=== PATIENT | male | born 1940 | race Caucasian/White ===

== ENCOUNTER 2017-08-06 15:43 | Observation (INO) | payer MEDICARE ==
[~2017-08-06] VITALS: Ht 175.3 cm; Wt 104.3 kg
[~2017-08-06 15:43] MED LIST: ALBU8.5H8 IH; ATOR-2 PO; BUDE10.2 IH; FLUT16H NASAL; LISI10TA7 PO; PYRI50TA15 PO; TAMS0.4C32 PO; spiriva IH
[2017-08-06] MEDS ORDERED: METHYLPREDNISOLONE SOD SUCC 125MG/2ML VIAL ONE (16:13)
[2017-08-06] MEDS ORDERED: IPRATROPIUM/ALBUTEROL SULFATE 3 ML SOLUTION IH ONE (16:18)
[2017-08-06 16:26] LABS: BASOPHILS % (AUTO) 0.7 % (0.0-5.0); EOSINOPHILS % (AUTO) 0.6 % (0.0-8.0); HEMATOCRIT 47.7 % (42-54); MEAN CORPUSCULAR HEMOGLOBIN 30.9 pg (27.0-33.0); MEAN CORPUSCULAR HGB CONC 34.3 g/dL (32.0-36.0); MEAN CORPUSCULAR VOLUME 90.3 fL (79-99); MONOCYTES % (AUTO) 20.4 % (3.0-13.0); NEUTROPHILS % (AUTO) 58.3 % (40.0-77.0); PLATELET COUNT (AUTO) 166 K/uL (130-400); RED BLOOD CELL COUNT(AUTO) 5.28 MIL/uL (4.50-6.20); RED CELL DISTRIBUTION WIDTH 15.2 % (11.0-15.5)
[2017-08-06 16:35] LABS: CREATININE 1.3 mg/dL (0.5-1.5); POTASSIUM 4.1 mmol/L (3.5-5.1)
[2017-08-06 16:40] LABS: ALBUMIN 3.6 g/dL (3.5-5.0); BILIRUBIN,TOTAL 0.7 mg/dL (0.2-1.0)
[2017-08-06] MEDS ORDERED: OSELTAMIVIR PHOSPHATE 75 MG CAP ONE (18:03)
[2017-08-06] MEDS ORDERED: AZITHROMYCIN 500MG+NS 250ML 250 ML IV ONE (20:17)
[2017-08-07] MEDS ORDERED: METHYLPREDNISOLONE SOD SUCC 40MG/ML 1ML ONE (05:16)
[2017-08-07] MEDS ORDERED: OSELTAMIVIR PHOSPHATE 75 MG CAP ONE (05:17)
[2017-08-07 05:45] LABS: BASOPHILS % (AUTO) 0.4 % (0.0-5.0); HEMATOCRIT 45.8 % (42-54); LYMPHOCYTES % (AUTO) 17.3 % (21.0-51.0); MEAN CORPUSCULAR HEMOGLOBIN 30.7 pg (27.0-33.0); MEAN CORPUSCULAR HGB CONC 33.8 g/dL (32.0-36.0); MEAN CORPUSCULAR VOLUME 90.8 fL (79-99); MONOCYTES % (AUTO) 14.1 % (3.0-13.0); NEUTROPHILS % (AUTO) 68.2 % (40.0-77.0); NUCLEATED RED BLOOD CELLS 0.1 % (0.0-0.19); PLATELET COUNT (AUTO) 170 K/uL (130-400); RED BLOOD CELL COUNT(AUTO) 5.04 MIL/uL (4.50-6.20); RED CELL DISTRIBUTION WIDTH 15.5 % (11.0-15.5); WHITE BLOOD COUNT (AUTO) 3.7 K/uL (4.8-10.8)
[2017-08-07 05:53] LABS: CREATININE 1.1 mg/dL (0.5-1.5)
[2017-08-07] MEDS ORDERED: CLONIDINE HCL 0.1 MG TABLET PO PRN (07:30)
[2017-08-07] MEDS ORDERED: POTASSIUM CHLORIDE 10% ELIXIR 20 MEQ/15 ML UDCUP PO PRN (07:30)
[2017-08-07] MEDS ORDERED: LIDOCAINE HCL-MPF 1% 2ML VIAL IJ PRN (07:30)
[2017-08-07] MEDS ORDERED: POTASSIUM CHLORIDE 20 MEQ ERTAB PO PRN (07:30)
[2017-08-07] MEDS ORDERED: LACTULOSE 20 GM/30 ML UDCUP PO PRN (07:30)
[2017-08-07] MEDS ORDERED: NITROGLYCERIN 0.4 MG SL TAB SL PRN (07:30)
[2017-08-07] MEDS ORDERED: GUAIFENESIN-DM 200/20 MG 10 ML PO PRN (07:30)
[2017-08-07] MEDS ORDERED: ONDANSETRON HCL 4 MG/2 ML VIAL IVP PRN (07:30)
[2017-08-07] MEDS ORDERED: ACETAMINOPHEN 325 MG TAB PO PRN ×2 (07:30)
[2017-08-07] MEDS ORDERED: POTASSIUM CHLORIDE 20MEQ/100ML 100 ML IV PRN (07:30)
[2017-08-07] MEDS ORDERED: FAMOTIDINE 20MG TAB 20 MG TAB PO SCH (09:00)
[2017-08-07] MEDS ORDERED: OSELTAMIVIR PHOSPHATE 75 MG CAP PO SCH (09:00)
[2017-08-07] MEDS ORDERED: AZITHROMYCIN 500MG+NS 250ML 250 ML IV SCH (09:00)
[2017-08-07] MEDS: IPRATROPIUM/ALBUTEROL SULFATE 3 ML SOLUTION IH SCH ×2 (10:00→13:28)
[2017-08-07] MEDS ORDERED: IPRATROPIUM/ALBUTEROL SULFATE 3 ML SOLUTION IH ONE ×2 (10:21)
[2017-08-07] MEDS ORDERED: PRED20TA3 PO (12:17)
[2017-08-07] MEDS ORDERED: AZIT500T4 PO (12:17)
[2017-08-07] MEDS ORDERED: OSEL75 PO (12:17)
[2017-08-07 13:13] VITALS: BP 131/72
[2017-08-07] MEDS ORDERED: METHYLPREDNISOLONE SOD SUCC 125MG/2ML VIAL IVP SCH (14:00)
== END 2017-08-07 13:46 | disposition home or self-care (01) ==
LOC: EDH 15:43 → EDHIP 18:15
PROVIDERS: ADMIT Family Medicine; ATTEND Family Medicine
DX: J44.1 Chronic obstructive pulmonary disease with (acute) exacerbation (principal); J10.1 Influenza due to other identified influenza virus with other respiratory manifestations; I10 Essential (primary) hypertension; I25.10 Atherosclerotic heart disease of native coronary artery without angina pectoris; E66.9 Obesity, unspecified; R09.02 Hypoxemia; Z87.891 Personal history of nicotine dependence
CPT/HCPCS: 36415 ×2; 71045; 80048; 80053; 83605; 84484; 85025 ×2; 87040 ×2; 87804 ×2; 93005; 94640 ×3; 94664; 99285; G0378 ×20; J0456; J2920; J2930

== ENCOUNTER 2019-03-17 16:53 | Emergency (ER) | payer MEDICARE ==
[~2019-03-17 16:53] MED LIST changes: +AEC81 PO; +BENZ200C53 PO; +CLOP75TA14 PO; -LISI10TA7 PO; +PRED20B PO
[2019-03-17] MEDS ORDERED: ACETAMINOPHEN EXTRA STRENGTH 500 MG TABLET ONE (17:36)
[2019-04-04] MEDS ORDERED: ROSU40TA21 PO (15:28)
== END 2019-03-17 18:15 | disposition home or self-care (01) ==
LOC: EDH 16:53
DX: S16.1XXA Strain of muscle, fascia and tendon at neck level, initial encounter (principal); I10 Essential (primary) hypertension; J44.9 Chronic obstructive pulmonary disease, unspecified; Z87.891 Personal history of nicotine dependence; V49.49XA Driver injured in collision with other motor vehicles in traffic accident, initial encounter; Y93.89 Activity, other specified; Y92.410 Unspecified street and highway as the place of occurrence of the external cause; Y99.8 Other external cause status
CPT/HCPCS: 72125

== ENCOUNTER 2019-04-05 07:00 | Day surgery (SDC) | payer MEDICARE ==
[~2019-04-05 07:00] MED LIST changes: -AEC81 PO; -ATOR-2 PO; -PRED20B PO; -PYRI50TA15 PO; +ROSU40TA21 PO; +SODIUM CHLORIDE 0.9% 1000ML 1,000 ML IV ONE; -TAMS0.4C32 PO
[2019-04-05] MEDS ORDERED: IPRATROPIUM/ALBUTEROL SULFATE 3 ML SOLUTION IH ONE (09:31)
[2019-04-05] MEDS ORDERED: IPRATROPIUM/ALBUTEROL SULFATE 3 ML SOLUTION IH SCH (09:45)
[2019-04-05] MEDS ORDERED: LOSA25TA41 PO (09:47)
[2019-04-05] MEDS ORDERED: ALBU0.63 IH (09:47)
[2019-04-05] MEDS ORDERED: PROPOFOL 10 MG/ML 20ML VIAL IV ONE (10:30)
[2019-04-05] MEDS ORDERED: PHENYLEPHRINE HCL 10 MG/ML 1ML VIAL IV ONE (10:43)
[2019-04-05] MEDS ORDERED: SODIUM CHLORIDE 0.9% 10 ML VIAL ONE (10:43)
[2019-04-05 10:54] VITALS: BP 122/65
[2019-04-05 10:59] VITALS: BP 114/69
[2019-04-05 11:04] VITALS: BP 118/52
[2019-04-05 11:09] VITALS: BP 104/84
[2019-04-05 11:15] VITALS: BP 106/70
== END 2019-04-05 11:36 | disposition home or self-care (01) ==
LOC: ENDO 07:00 → DAH 07:00 → ENDO 11:36
PROVIDERS: ATTEND Internal Medicine
DX: K92.2 Gastrointestinal hemorrhage, unspecified (principal); D12.2 Benign neoplasm of ascending colon; D12.4 Benign neoplasm of descending colon; K64.1 Second degree hemorrhoids; E78.5 Hyperlipidemia, unspecified; I10 Essential (primary) hypertension; J44.9 Chronic obstructive pulmonary disease, unspecified; K21.9 Gastro-esophageal reflux disease without esophagitis; I25.10 Atherosclerotic heart disease of native coronary artery without angina pectoris; K44.9 Diaphragmatic hernia without obstruction or gangrene; Z79.82 Long term (current) use of aspirin; Z95.5 Presence of coronary angioplasty implant and graft; Z79.899 Other long term (current) drug therapy; Z90.49 Acquired absence of other specified parts of digestive tract; Z98.890 Other specified postprocedural states
CPT/HCPCS: 45385; 88305; 94640; A4215; A4221; A4222; A4223; A4606; A4615; A4663; J2370; J2704; J7030

== ENCOUNTER → 2021-10-16 | Outpatient (CLI) | payer MEDICARE ==
[~2021-10-16] MED LIST changes: +ALBU0.63 IH; +LOSA25TA41 PO; -SODIUM CHLORIDE 0.9% 1000ML 1,000 ML IV ONE
== END | disposition home or self-care (01) ==
LOC: OIH 10:57
PROVIDERS: ATTEND Internal Medicine Cardiovascular Disease
DX: I50.20 Unspecified systolic (congestive) heart failure (principal); I11.0 Hypertensive heart disease with heart failure
CPT/HCPCS: 93306

== ENCOUNTER → 2022-06-27 | Outpatient (CLI) | payer MEDICARE ==
[~2022-06-27] MED LIST changes: +CLOP-31 PO; -CLOP75TA14 PO; +IOHEXOL-350 50ML VIAL IV ONE
== END | disposition home or self-care (01) ==
LOC: RAH 10:12
PROVIDERS: ATTEND Internal Medicine Cardiovascular Disease
DX: J44.9 Chronic obstructive pulmonary disease, unspecified (principal); R04.2 Hemoptysis
CPT/HCPCS: 71270; Q9967

== ENCOUNTER 2022-12-24 06:52 | Inpatient (IN) | payer MEDICARE ==
[2022-12-22 10:51] VITALS: BP 113/75; PULSE 87; RESP 16
[2022-12-22 10:55] LABS: BASOPHILS % (AUTO) 0.4 % (0.0-5.0); EOSINOPHILS % (AUTO) 0.8 % (0.0-8.0); HEMATOCRIT 46.7 % (42-54); LYMPHOCYTES % (AUTO) 7.6 % (21.0-51.0); MEAN CORPUSCULAR HEMOGLOBIN 27.5 pg (27.0-33.0); MEAN CORPUSCULAR HGB CONC 30.8 g/dL (32.0-36.0); MEAN CORPUSCULAR VOLUME 89.1 fL (79-99); MONOCYTES % (AUTO) 10.7 % (3.0-13.0); NEUTROPHILS % (AUTO) 79.3 % (40.0-77.0); PLATELET COUNT (AUTO) 252 K/uL (130-400); RED BLOOD CELL COUNT(AUTO) 5.24 MIL/uL (4.50-6.20); RED CELL DISTRIBUTION WIDTH 17.4 % (11.0-15.5); WHITE BLOOD COUNT (AUTO) 16.8 K/uL (4.8-10.8)
[2022-12-22 11:04] LABS: INR 1.03 (0.85-1.15); PROTHROMBIN TIME 11.9 SEC (9.6-11.6)
[2022-12-22 11:05] LABS: PARTIAL THROMBOPLASTIN TIME 30.6 SEC (26.3-35.5)
[2022-12-22 11:06] LABS: ALBUMIN 3.2 g/dL (3.5-5.0); POTASSIUM 4.8 mmol/L (3.5-5.1); TOTAL PROTEIN, SERUM 7.2 g/dL (6.0-8.3)
[~2022-12-24] VITALS: Ht 175.3 cm; Wt 76.1 kg
[2022-12-24] VITALS (22 sets, daily range): BP systolic 102–135; BP diastolic 58–75; PULSE 79–97; RESP 11–20; O2SAT 98
[~2022-12-24 06:52] MED LIST changes: +AEC81 PO; -ALBU8.5H8 IH; +BRIM5DRO2 OU; -BUDE10.2 IH; -CLOP-31 PO; +DICL75TA5 PO; +EZET10TA48 PO; +FINA5TAB41 PO; +FLUT1BLS9 IH; -IOHEXOL-350 50ML VIAL IV ONE; +LEFL10TA19 PO; +MV-M1TAB20 PO; +TIOT18CA3 IH; +XALA2.5OS OU; -spiriva IH
[2022-12-24] MEDS ORDERED: CEFAZOLIN SODIUM 2 GM VIAL ONE (07:49)
[2022-12-24] MEDS ORDERED: LACTATED RINGERS 1000ML 1,000 ML IV ONE (07:49)
[2022-12-24] MEDS ORDERED: KETAMINE 50MG/ML SYRINGE 50 MG/ML DISP.SYRIN ONE (07:51)
[2022-12-24] MEDS ORDERED: NOREPINEPHRINE BITARTRATE 1 MG/1 ML ML IV ONE (07:57)
[2022-12-24] MEDS ORDERED: LIDOCAINE HCL 4% LTA SOL 4 ML VIAL ONE (08:00)
[2022-12-24] MEDS ORDERED: LIDOCAINE PF 100MG/5ML (2%) SYRINGE 5ML ONE (08:00)
[2022-12-24] MEDS ORDERED: EPINEPHRINE PF 1MG (1:1,000) 1 MG/ML AMP ONE (08:01)
[2022-12-24] MEDS ORDERED: ROCURONIUM 10MG/1ML SYR 10 MG/ML ML ONE ×2 (10:26→11:26)
[2022-12-24] MEDS ORDERED: FENTANYL CITRATE PF 50 MCG/1 ML 2ML VIAL ONE ×2 (10:26→11:16)
[2022-12-24] MEDS ORDERED: PROPOFOL 10 MG/ML 20ML VIAL IV ONE (10:26)
[2022-12-24] MEDS ORDERED: EPHEDRINE SULFATE 50 MG/ML AMPULE ONE (10:38)
[2022-12-24] MEDS ORDERED: TRAMADOL HCL 50 MG TABLET PO PRN ×2 (11:00)
[2022-12-24] MEDS ORDERED: MAGNESIUM HYDROXIDE 30 ML/UDCUP PO PRN (11:00)
[2022-12-24] MEDS ORDERED: ONDANSETRON 4MG INJ IVP PRN (11:00)
[2022-12-24] MEDS ORDERED: LACTULOSE 20 GM/30 ML UDCUP PO PRN (11:00)
[2022-12-24] MEDS ORDERED: ACETAMINOPHEN 325 MG TAB PO PRN (11:00)
[2022-12-24] MEDS ORDERED: ALBUTEROL SULFATE 0.63 MG IH PRN (11:30)
[2022-12-24] MEDS ORDERED: SUGAMMADEX SODIUM 200 MG/2 ML VIAL IV ONE (11:45)
[2022-12-24] MEDS ORDERED: ONDANSETRON 4MG INJ ONE (11:45)
[2022-12-24] MEDS ORDERED: IPRATROPIUM 0.5 MG/2.5 ML INH IH SCH (12:00)
[2022-12-24] MEDS ORDERED: MEPERIDINE-PF 25 MG/ML SYG ONE ×2 (12:20→13:03)
[2022-12-24] MEDS: BENZONATATE 200 MG PO SCH ×2 (14:00→19:59)
[2022-12-24] MEDS: CEFAZOLIN SODIUM 2 GM VIAL IVPB SCH (18:13)
[2022-12-24] MEDS: BRIMONIDINE TARTRATE OU SCH (19:59)
[2022-12-24] MEDS: DICLOFENAC SODIUM 75 MG PO SCH (19:59)
[2022-12-24] MEDS: DOCUSATE SODIUM 100 MG CAP PO SCH (20:00)
[2022-12-24] MEDS ORDERED: ATORVASTATIN 40 MG TABLET PO SCH (21:00)
[2022-12-24] MEDS ORDERED: NON-FORMULARY MEDICATION 1 EACH (Rosuvastatin Calcium 40 MG) PO SCH (21:00)
[2022-12-24] MEDS ORDERED: SALMETEROL IH SCH (21:00)
[2022-12-24] MEDS ORDERED: FLUTICASONE PROPION IH SCH (21:00)
[2022-12-24] MEDS ORDERED: LATANOPROST 2.5 ML DROPS OU SCH (21:00)
[2022-12-25] VITALS: BP 106/57; PULSE 85; RESP 18
[2022-12-25] MEDS: CEFAZOLIN SODIUM 2 GM VIAL IVPB SCH ×2 (03:14→10:15)
[2022-12-25 04:00] VITALS: BP 106/64; PULSE 84; RESP 18
[2022-12-25 07:30] VITALS: BP 103/59; PULSE 87; RESP 18
[2022-12-25 07:45] VITALS: O2SAT 97
[2022-12-25] MEDS: DOCUSATE SODIUM 100 MG CAP PO SCH (07:59)
[2022-12-25] MEDS: DICLOFENAC SODIUM 75 MG PO SCH (08:05)
[2022-12-25] MEDS: BRIMONIDINE TARTRATE OU SCH (08:05)
[2022-12-25] MEDS: BENZONATATE 200 MG PO SCH ×2 (08:05→12:10)
[2022-12-25] MEDS ORDERED: MV MN PO SCH (09:00)
[2022-12-25] MEDS ORDERED: FLUTICASONE PROPION IH SCH (09:00)
[2022-12-25] MEDS ORDERED: [UNRECOGNIZED DRUG - OTHER] PO SCH (09:00)
[2022-12-25] MEDS ORDERED: SUB TO IPRATROPIUM 0.5MG/2.5ML PER P&T IH SCH (09:00)
[2022-12-25] MEDS ORDERED: FINASTERIDE 5 MG TABLET PO SCH (09:00)
[2022-12-25] MEDS ORDERED: FLUTICASONE PROPIONATE 50MCG/SPRAY 16 GM BOTTLE NS SCH (09:00)
[2022-12-25] MEDS ORDERED: ASPIRIN 81 MG EC TAB PO SCH (09:00)
[2022-12-25] MEDS ORDERED: LATANOPROST 2.5 ML DROPS OU SCH (09:00)
[2022-12-25] MEDS ORDERED: LOSARTAN 25 MG TABLET PO SCH (09:00)
[2022-12-25] MEDS ORDERED: IRON PO SCH (09:00)
[2022-12-25] MEDS ORDERED: EZETIMIBE 10 MG TAB PO SCH (09:00)
[2022-12-25] MEDS ORDERED: HERBAL CMPLX PO SCH (09:00)
[2022-12-25] MEDS ORDERED: SALMETEROL IH SCH (09:00)
[2022-12-25] MEDS ORDERED: Leflunomide 10 MG PO SCH (09:00)
[2022-12-25 11:10] VITALS: BP 106/63; PULSE 91; RESP 17
== END 2022-12-25 12:52 | disposition home or self-care (01) | DRG 581 ==
LOC: DAH 06:52 → DAHIP 06:53 → DAH 06:53 → 2AH 13:38
PROVIDERS: ADMIT Thoracic Surgery (Cardiothoracic Vascular Surgery); ATTEND Thoracic Surgery (Cardiothoracic Vascular Surgery)
PROC: 07B74ZX Excision of Thorax Lymphatic, Percutaneous Endoscopic Approach, Diagnostic (ICD-10-PCS; principal; 2022-12-24 10:27)
DX: R22.2 Localized swelling, mass and lump, trunk (principal); Z20.822 Contact with and (suspected) exposure to COVID-19
CPT/HCPCS: 36415; 71045; 80053; 85025; 85610; 85730; 86850; 86900; 86901; 87426; 93005; 94640; 94664; G0378; J0171; J2001; J2175; J2405; J2704; J3010; J3490; J7120; A4215; A4221; A4222; A4223; A4663; A6260; J0690